=== PATIENT | female | born 2000 | race African-American/Black ===

== ENCOUNTER 2018-11-17 07:57 | Emergency (ER) | payer BC ==
[~2018-11-17] VITALS: Ht 152.4 cm; Wt 53.1 kg
--- NOTE | 2018-11-17 08:15 | NUR ---
PT ARRIVED TO ROOM 4 AMBULATORY. PT C/O "I HAVE BEEN HAVING VAGINAL BLEEDING FOR 3 DAYS NOW BUT MY PERIOD ENDED FOR ONE DAY THEN I STARTED BLEEDING AGAIN. I BRUISE REALLY EASY AND I'M ALWAYS COLD, I'M WORRIED I MIGHT BE ANEMIC. I LOOKED UP THE SYMPTOMS ONLINE." PT DENIES ANY URINARY SYMPTOMS. PT DRESSED IN GOWN, RESTING COMFORTABLY ON GURNEY. PT AAO X 4, VSS. CALL LIGHT AND BELONGINGS WITHIN REACH. PT EDUCATED ON POC.
[2018-11-17 08:29] VITALS: BP 107/68
--- NOTE | 2018-11-17 08:40 | NUR ---
PT TO US.
[2018-11-17 08:46] LABS: MICROSCOPIC AUTO
[2018-11-17 08:47] LABS: CULTURE INDICATED? NO
--- NOTE | 2018-11-17 08:52 | NUR ---
REPORT GIVEN TO NALLELY DAS.
[2018-11-17 09:35] LABS: BASOPHILS # (AUTO) 0.02 x10^3/uL (0-0.3); BASOPHILS % (AUTO) 0 % (0-1); EOSINOPHILS # (AUTO) 0.16 x10^3/uL (0-0.8); EOSINOPHILS % (AUTO) 2 % (1-7); LYMPHOCYTES # (AUTO) 2.67 x10^3/uL (1-6.1); LYMPHOCYTES % (AUTO) 41 % (22-44); MD NO; MEAN CORPUSCULAR HEMOGLOBIN 29.3 pg (27.0-34.8); MEAN CORPUSCULAR HGB CONC 32.5 g/dL (32.4-35.8); MEAN CORPUSCULAR VOLUME 90.2 fL (80-100); MEAN PLATELET VOLUME 7.8 fL (7.4-10.4); MONOCYTES % (AUTO) 6 % (2-9); NEUTROPHILS # (AUTO) 3.29 x10^3/uL (1.8-8.0); NEUTROPHILS % (AUTO) 50 % (42-75); PLATELET COUNT 239 x10^3/uL (130-400); RED BLOOD COUNT 4.33 x10^6/uL (3.82-5.3); RED CELL DISTRIBUTION WIDTH 13.1 % (9.6-15.2)
[2018-11-17 09:44] LABS: ALBUMIN 3.6 g/dL (3.4-5.0); ANION GAP 4 mmol/L (5-15); CALCIUM 8.4 mg/dL (8.5-10.1); CHLORIDE 113 mmol/L (98-107); CREATININE 0.69 mg/dL (0.55-1.02)
== END 2018-11-17 11:05 | disposition home or self-care (01) ==
LOC: ED 09:31
DX: N83.292 Other ovarian cyst, left side (principal); N93.8 Other specified abnormal uterine and vaginal bleeding
CPT/HCPCS: 36415; 76830; 80048; 81001; 82040; 84703; 85025; 99284